=== PATIENT | male | born 1990 | race Caucasian/White ===

== ENCOUNTER 2021-08-03 14:41 | Emergency (ER) | payer BC ==
[2021-08-03] MEDS ORDERED: MOTRIN 600 MG PO ONE (14:53)
[2021-08-03] MEDS ORDERED: Augmentin 875-125 Tablet PO ONE (14:53)
[2021-08-03 14:56] VITALS: BP 133/72; PULSE 67; O2SAT 96
[2021-08-03] MEDS ORDERED: MOTRIN 600 MG ONE (14:56)
[2021-08-03] MEDS ORDERED: Augmentin 875-125 Tablet ONE (14:56)
--- NOTE | 2021-08-03 15:08 | ERPHSYRPT ---
- History of Present Illness Time Seen by Provider: 08/03/21 14:42 Source: patient Exam Limitations: no limitations Patient Subjective Stated Complaint: sore throat Triage Nursing Assessment: Patient ambulated back to ED and transferred self to bed. Patient A+O X3. Patient's skin pink, warm and dry. Patient states he woke up this am with a sore throat. Patient complains of sore throat 5/10. Throat noted to be red and slightly swollen. Patient denies SOB or trouble swallowing. Physician History: 30 years old male presented in the ER with chief complaint of sore throat since yesterday with progressive worsening and hurts to swallow solid food. No difficulty breathing or cough. No fever but body aches. Timing/Duration: abrupt onset, yesterday Severity: moderate ENT Location: throat Prearrival Treatment: over the counter meds Associated Symptoms: sore throat Allergies/Adverse Reactions: No Known Drug Allergies Allergy (Unverified 08/03/21 14:47) Hx Influenza Vaccination/Date Given: No Hx Pneumococcal Vaccination/Date Given: No Immunizations Up to Date: Yes Travel Risk - International Travel Have you traveled outside of the country in past 3 weeks: No - Coronavirus Screening Are you exhibiting any of the following symptoms?: No Close contact with a COVID-19 positive Pt in past 14-21 Days: No - Vaccine Status Have you recieved a Covid-19 vaccination: Yes 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: [employer] - Vaccination Dates Date of 2cond Vaccination (if applicable): na - Review of Systems Constitutional: Fatigue, Weakness Eyes: No Symptoms Ears, Nose, & Throat: Throat Pain, Throat Swelling Respiratory: No Symptoms Cardiac: No Symptoms Abdominal/Gastrointestinal: No Symptoms Genitourinary Symptoms: No Symptoms Musculoskeletal: No Symptoms Skin: No Symptoms Neurological: No Symptoms Endocrine: No Symptoms Hematologic/Lymphatic: No Symptoms - Past Medical History Pertinent Past Medical History: No Neurological History: No Pertinent History ENT History: No Pertinent History Cardiac History: No Pertinent History Respiratory History: No Pertinent History Musculoskeletal History: No Pertinent History GI Medical History: No Pertinent History History: No Pertinent History Psycho-Social History: No Pertinent History Male Reproductive Disorders: No Pertinent History - Past Surgical History Past Surgical History: No Neuro Surgical History: No Pertinent History Cardiac: No Pertinent History Respiratory: No Pertinent History Gastrointestinal: No Pertinent History Genitourinary: No Pertinent History Musculoskeletal: No Pertinent History Male Surgical History: No Pertinent History - Social History Smoking Status: Never smoker Exposure to second hand smoke: No Drug Use: none Patient Lives Alone: No - Nursing Vital Signs Nursing Vital Signs: Initial Vital Signs Temperature 98.1 F 08/03/21 14:51 Pulse Rate 67 08/03/21 14:51 Respiratory Rate 18 08/03/21 14:51 Blood Pressure 133/72 08/03/21 14:51 O2 Sat by Pulse Oximetry 96 08/03/21 14:51 Pain Scale Pain Intensity 3 - Physical Exam General Appearance: no apparent distress, alert Eye Exam: bilateral eye: normal inspection, PERRL, EOMI Ear Exam: bilateral ear: auricle normal, canal normal, TM normal Nasal Exam: normal inspection Throat Exam: normal, moist mucus membranes, pharynx swelling, pharynx tenderness, uvula swelling Neck Exam: normal inspection, non-tender, supple, full range of motion, lymphadenopathy (L) Cardiovascular/Respiratory Exam: normal breath sounds, regular rate/rhythm Neurologic Exam: alert, oriented x 3, 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 Skin Exam: normal color SpO2 Interpretation: normal SpO2: 96 O2 Delivery: Room Air Ordered Tests: Medication Summary Discontinued Medications Generic Name Dose Route Start Last Admin Trade Name Freq PRN Reason Stop Dose Admin Amoxicillin/Clavulanate Potassium 875 mg 08/03/21 14:53 08/03/21 14:59 Amox Tr/Potassium Clavulanate 875 Mg Tablet PO 08/03/21 14:54 875 mg STAT ONE Administration Amoxicillin/Clavulanate Potassium Confirm 08/03/21 14:56 Amox Tr/Potassium Clavulanate 875 Mg Tablet Administered 08/03/21 14:57 Dose 875 mg .ROUTE .STK-MED ONE Ibuprofen 600 mg 08/03/21 14:53 08/03/21 14:59 Ibuprofen 600 Mg Tablet PO 08/03/21 14:54 600 mg STAT ONE Administration Ibuprofen Confirm 08/03/21 14:56 Ibuprofen 600 Mg Tablet Administered 08/03/21 14:57 Dose 600 mg .ROUTE .STK-MED ONE Lab/Rad Data: Laboratory Results 08/03/21 Range/Units 15:15 Group A Strep Antibody NOT DETECTED (NEGATIVE) - Progress Progress: pain not gone completely Progress Note: 08/03/21 15:06 Given symptomatic treatment and started on Augmentin. Outpatient follow-up recommended. Counseled pt/family regarding: lab results, diagnosis, need for follow-up - Departure Departure Disposition: Home Clinical Impression: Acute pharyngitis Condition: Stable Critical Care Time: No Referrals: ALLYN VERNON [Primary Care Provider] - Follow Up with PCP/3 days Instructions: Sore Throat, Adult (DC) Additional Instructions: Take Tylenol/ibuprofen as needed for pain. Drink plenty of fluids to keep yourself well-hydrated. Follow-up with primary care for reevaluation. Return to ER for increased swelling, difficulty swallowing/difficulty breathing etc. Prescriptions: Amox Tr/Potass Clav. 875 mg [Augmentin 875-125 Tablet] 875 mg PO BID #19 tablet
== END 2021-08-03 15:12 | disposition home or self-care (01) ==
LOC: ED 14:41
DX: J02.9 Acute pharyngitis, unspecified (principal)
CPT/HCPCS: 87651; 99283; A9270-GY

== ENCOUNTER 2023-11-06 15:29 | Emergency (ER) | payer BC ==
[2023-11-06 16:03] VITALS: BP 145/98; PULSE 77; RESP 18; TEMP 97.8; O2SAT 97
[2023-11-06] MEDS ORDERED: XYLOCAINE 1%/Epi 1:100000 MDV 20 ML ONE (16:04)
[2023-11-06] MEDS: XYLOCAINE 1%/Epi 1:100000 MDV 20 ML IJ ONE (16:14)
--- NOTE | 2023-11-06 16:26 | ERPHSYRPT ---
- History of Present Illness Time Seen by Provider: 11/06/23 16:19 Source: patient, family Exam Limitations: no limitations Patient Subjective Stated Complaint: Laceration to face Triage Nursing Assessment: Patient ambulated back to ED and transferred self to bed. Patient A+O X3. Patient's skin pink, warm and dry. Patient complains of multiple lacerations to face. Patient states he was cleaning the pool and standing on the deck when he slipped off the deck causing a cut to face, nose and lip. Patient has 2cm X 0.1cm to right cheek, .3cm X .1cm to right side of nose, 2 cm X 2cm X 2 cm pucture site to right side of lip. Physician History: Patient states he was cleaning the pool and standing on the deck when he slipped off the deck causing a cut to face, nose and lip. Patient has 2cm X 0.1cm to right cheek, .3cm X .1cm to right side of nose, 2 cm X 2cm X 2 cm pucture site to right side of lip. Associated Symptoms: denies symptoms Allergies/Adverse Reactions: No Known Drug Allergies Allergy (Verified 11/06/23 15:39) Home Medications: No Reportable Medications [No Reported Medications] 11/06/23 [History] Hx Tetanus, Diphtheria Vaccination/Date Given: Yes (2020) Hx Influenza Vaccination/Date Given: No Hx Pneumococcal Vaccination/Date Given: No Immunizations Up to Date: Yes Travel Risk - International Travel Have you traveled outside of the country in past 3 weeks: No - Emerging Infectious Disease Are you exhibiting symptoms associated with any current EIDs: No - Review of Systems Constitutional: No Symptoms Eyes: No Symptoms Ears, Nose, & Throat: No Symptoms Respiratory: No Symptoms Cardiac: No Symptoms Abdominal/Gastrointestinal: No Symptoms Genitourinary Symptoms: No Symptoms Musculoskeletal: No Symptoms Skin: Other (lacerations as described above) - Past Medical History Pertinent Past Medical History: No Neurological History: No Pertinent History ENT History: No Pertinent History Cardiac History: No Pertinent History Respiratory History: No Pertinent History Musculoskeletal History: No Pertinent History GI Medical History: No Pertinent History History: No Pertinent History Psycho-Social History: No Pertinent History Male Reproductive Disorders: No Pertinent History - Past Surgical History Past Surgical History: No Neuro Surgical History: No Pertinent History Cardiac: No Pertinent History Respiratory: No Pertinent History Gastrointestinal: No Pertinent History Genitourinary: No Pertinent History Musculoskeletal: No Pertinent History Male Surgical History: No Pertinent History - Social History Smoking Status: Never smoker Exposure to second hand smoke: No Drug Use: none Patient Lives Alone: No - Social Determinants of Health Will the patient participate in the screening: Yes Do you worry about a steady place to live?: No Do you have any problems with any of the following?: No known problems In the past 12 months,have you had to go without utilities?: No Transportation Issues: No Has anyone in your support network made you feel unsafe?: No Have you or anyone in your house had to go without enough: No - Nursing Vital Signs Nursing Vital Signs: Initial Vital Signs Temperature 97.8 F 11/06/23 15:41 Pulse Rate 77 11/06/23 15:41 Respiratory Rate 18 11/06/23 15:41 Blood Pressure 145/98 11/06/23 15:41 O2 Sat by Pulse Oximetry 97 11/06/23 15:41 Pain Scale Pain Intensity 0 - Physical Exam General Appearance: no apparent distress Eye Exam: PERRL/EOMI Ears, Nose, Throat Exam: normal ENT inspection Neck Exam: normal inspection Respiratory Exam: normal breath sounds Cardiovascular Exam: regular rate/rhythm Extremity Exam: normal inspection Neurologic Exam: alert, oriented x 3 Skin Exam: normal color, laceration SpO2 Interpretation: normal SpO2: 97 O2 Delivery: Room Air Procedures - Laceration/Wound Repair Right Lip Time of Procedure: 16:27 Wound Location: Right (angle of lip) Wound Length (cm): 1 Wound's Depth, Shape: superficial Wound Explored: clean Irrigated: Yes Hibiclens Prep: Yes Anesthesia: 1% lidocaine w/ Epi Volume Anesthetic (ccs): 3 Wound Debrided: minimal Wound Repaired With: sutures Suture Size/Type: 5-0, ethilon Number of Sutures: 4 Layer Closure?: No Sterile Dressing Applied?: Yes - Course Nursing assessment & vital signs reviewed: Yes Ordered Tests: Medication Summary Discontinued Medications Generic Name Dose Route Start Last Admin Trade Name Freq PRN Reason Stop Dose Admin Lidocaine/Epinephrine Confirm 11/06/23 16:04 Lidocaine Hcl/Epinephrine 1% 20 Ml Administered 11/06/23 16:05 Dose 3 ml .ROUTE .STK-MED ONE Lidocaine/Epinephrine 3 ml 11/06/23 16:12 11/06/23 16:14 Lidocaine Hcl/Epinephrine 1% 20 Ml IJ 11/06/23 16:13 3 ml STAT ONE Administration - Progress Progress: improved Counseled pt/family regarding: diagnosis, need for follow-up (sutures removal in 10 days) Medical Desision Making - Risk of complications Minimal Risk: Minimal risk of morbidity - Departure Departure Disposition: Home Clinical Impression: Laceration of lip without complication Qualifiers: Encounter type: initial encounter Qualified Code(s): S01.511A - Laceration without foreign body of lip, initial encounter Injury of face, superficial Qualifiers: Encounter type: initial encounter Qualified Code(s): S00.80XA - Unspecified superficial injury of other part of head, initial encounter Condition: Stable Critical Care Time: No Referrals: DOCTOR,NO FAMILY [Primary Care Provider] - Follow up/PCP as directed Instructions: Surgical Wound (DC), Wound Care (DC), Laceration Repair With Stitches (DC) Additional Instructions: Sutures removal in 10 days Discharge/Care Plan HERBERTJEFFRY Vincent was seen on 11/06/23 in the Emergency Room. The patient was c ounseled regarding Diagnosis,Lab results, Imaging studies, need for follow up and when to return to the Emergency Room. Prescriptions given: Discharge Note I have spoken with the patient and/or caregivers. I have explained the patient's condition, diagnosis and treatment plan based on the information available to me at this time. I have answered the patient's and/or caregiver's questions and addressed any concerns. The patient and/or caregivers have as good understanding of the patient's diagnosis, condition and treatment plan as can be expected at this point. The vital signs have been stable. The patient's condition is stable and appropriate for discharge from the emergency department. The patient will pursue further outpatient evaluation with the primary care physician or other designated or consulting physician as outlined in the discharge instructions. The patient and/or caregivers are agreeable to this plan of care and follow-up instructions have been explained in detail. The patient and/or caregivers have received these instruction. The patient/and or caregivers are aware that any significant change in condition or worsening of symptoms should prompt an immediate return to this or the closest emergency department or call 911. JEFFRY GODINEZ Amie was seen on 11/06/23 n the Emergency Room. At that time you were treated for an emergent condition, during your visit Laboratory, Radiology and/or other procedures may have been ordered. It is very important that you follow-up with your Primary Care Physician NO FAMILY DOCTOR within the next 24- 48 hours to review your Emergency Room visit and the final results of testing that was ordered. Some test results such as Urine Cultures, Blood Cultures, and other cultures if ordered will not be finalized for 24-48 hours. If you do not have a Primary Care Provider please call the medical records department at [phone] ext [phone] to obtain a copy of your results or you may sign into our patient portal to obtain these results by visiting us @ [email or web address] and completing the following steps: 1. Click on the Patient Portal link 2. Click the Patient Self Enrollment Link to complete the enrollment form and entering your 3. Once the enrollment form is completed you will receive an email with a temporary ID and password at the email address you provided. 4. Next choose a user name and password. Your user name must be at least 4 characters long and your password must be at least 4 characters long. 5. Choose a security question from the list and provide your answer to the question. If you already have signed into the Health Portal you may access your Health Care Information 07/09 by the following steps: 1. Login to our website @ [email or web address] 2. Enter your original user name and password. FAQS The [facility] Health Portal is an online tool that contains your Lab Results, Radiology Reports, Visit History, Discharge Instructions and Health Summary Lab and Radiology Results will not be available for 72 hours on the portal. The Portal is a secure site, passwords are encryted and URLs are re-written so they cannot be copied and pasted. You and authorized family members are the only ones who can access your Portal. Also there is a timeout feature that protects your information if you leave the Portal page open. If you have technical difficulty please use the Contact Us link on the page this will allow you to submit any questions you have regarding the Portal or you may contact the Medical Record Department at [phone] ext [phone].
== END 2023-11-06 16:35 | disposition home or self-care (01) ==
LOC: ED 15:29
DX: S01.411A Laceration without foreign body of right cheek and temporomandibular area, initial encounter (principal); S01.21XA Laceration without foreign body of nose, initial encounter; S01.511A Laceration without foreign body of lip, initial encounter; W19.XXXA Unspecified fall, initial encounter
CPT/HCPCS: 12011; 96372; 99283